=== PATIENT | female | born 1940 | race Caucasian/White ===

== ENCOUNTER 2023-12-28 09:03 | Emergency (ER) | payer MEDICARE ==
[~2023-12-28] VITALS: Ht 160 cm; Wt 63.0 kg
[~2023-12-28 09:03] MED LIST: (None)1 % OS; PRAVASTATIN SOD20 MG PO; PREDNISOLONE
[2023-12-28 10:39] VITALS: BP 124/74
== END 2023-12-28 10:39 | disposition home or self-care (01) ==
LOC: ED 09:03
DX: R42 Dizziness and giddiness (principal); T50.8X5A Adverse effect of diagnostic agents, initial encounter; I65.23 Occlusion and stenosis of bilateral carotid arteries
CPT/HCPCS: Q9967